=== PATIENT | female | born 1965 | race Caucasian/White ===

== ENCOUNTER 2016-12-13 07:17 | Emergency (ER) | payer MEDICAID, OTHER ==
[~2016-12-13] VITALS: Ht 162.6 cm; Wt 137.0 kg
[~2016-12-13 07:17] MED LIST: AMLO-147 PO; APIX5TAB PO; ASPI-664 PO; CHOL100062 PO; CIPR500T4 PO; CLIN-73 PO; DOCU-144 PO; FER325 PO; HYDR-3498 PO; HYDR25TA6 PO; LOSA50TA2 PO; MUPI22OI2 TOP; NYST15PO4 TOP; OMEP20CA9 PO; RANI150T9 PO; SACC250C PO; TRAM50TA2 PO
[2016-12-13 07:19] VITALS: Ht 162.6 cm; Wt 137.0 kg
[2016-12-13] MEDS ORDERED: IBUPROFEN 600 MG TAB PO ONE (08:00)
[2016-12-13] MEDS ORDERED: SOD CHLORIDE 0.9% IV ONE (08:00)
[2016-12-13] MEDS ORDERED: ACETAMINOPHEN 325 MG TAB PO ONE (08:00)
[2016-12-13 08:48] LABS: BASOPHIL # 0.1 10^3/ul (0.0-0.1); BASOPHILS % 0.5 % (0.0-2.0); HEMATOCRIT 35.2 % (37.0-47.0); HEMOGLOBIN 11.6 g/dl (12.0-16.0); LYMPHOCYTES # 1.1 10^3/ul (0.8-2.9); LYMPHOCYTES % 9.7 % (15.0-51.0); MEAN CORPUSCULAR HEMOGLOBIN 25.7 pg (29.0-33.0); MEAN CORPUSCULAR VOLUME 77.9 fl (82.0-101.0); MEAN PLATELET VOLUME 10.7 fl (7.4-10.4); MONOCYTE # 0.7 10^3/ul (0.3-0.9); MONOCYTES % 6.1 % (0.0-11.0); NEUTROPHIL # 9.6 10^3/ul (1.6-7.5); NEUTROPHILS % 83.3 % (39.0-77.0); PLATELET COUNT 245 10^3/UL (140-415); RED BLOOD COUNT 4.52 10^6/ul (4.20-5.40); RED CELL DISTRIBUTION WIDTH 14.6 % (11.5-14.5); WHITE BLOOD COUNT 11.6 10^3/ul (4.8-10.8)
[2016-12-13 08:59] LABS: ADD UMIC YES; UR ASCORBIC ACID NEGATIVE (NEGATIVE); UR BACTERIA FEW /HPF (NONE SEEN); UR BILIRUBIN (Dip) NEGATIVE (NEGATIVE); UR BLOOD (Dip) 2+ mg/dL (NEGATIVE); UR CLARITY CLOUDY (CLEAR); UR COLOR YELLOW (YELLOW); UR GLUCOSE (Dip) NEGATIVE (NEGATIVE); UR KETONES (Dip) 1+ mg/dL (NEGATIVE); UR LEUKOCYTE ESTERASE (Dip) 3+ Leu/ul (NEGATIVE); UR NITRITE (Dip) POSITIVE (NEGATIVE); UR RBC 14 /HPF (0-5); UR SPECIFIC GRAVITY (Dip) 1.012 (1.003-1.030); UR SQUAMOUS EPITHELIAL CELL FEW /HPF (FEW); UR TOTAL PROTEIN (Dip) 2+ mg/dl (NEGATIVE); UR UROBILINOGEN (Dip) 2+ mg/dL (NEGATIVE)
--- NOTE | 2016-12-13 09:05 | RADRPT ---
PROCEDURE: CHEST RADIOGRAPH CLINICAL INDICATION: Fever. TECHNIQUE: Single frontal view of the chest were obtained. COMPARISON: 11/22/2015. FINDINGS: There is no consolidation or pleural effusion. There is no pneumothorax. The cardiomediastinal stru ctures unremarkable. The visualized bony structures are unremarkable. IMPRESSION: Unremarkable single-view chest radiograph. RPTAT: HMZ .Salas Cueto MD, Date Time Electronically viewed and signed by .Salas Cueto MD, on 12/13/2016 09:05 .Z/
[2016-12-13 09:08] LABS: ALBUMIN 4.1 g/dl (3.3-4.9); ALBUMIN/GLOBULIN RATIO 1.1; BILIRUBIN,INDIRECT 0.7 mg/dl (0-1.1); BILIRUBIN,TOTAL 0.7 mg/dl (0.2-1.3); CREATININE 0.63 mg/dl (0.44-1.00); TOTAL PROTEIN 7.8 g/dl (6.1-8.1)
[2016-12-13] MEDS ORDERED: CEFTRIAXONE 1 GM/50 ML (PMX) 50 ML IVPB ONE (10:00)
[2016-12-13] MEDS ORDERED: POTASSIUM CHLORIDE (SR) 20 MEQ TAB PO STA (10:54)
[2016-12-13] MEDS ORDERED: IBUP400T22 PO (11:01)
[2016-12-13] MEDS ORDERED: CEPH-443 PO (11:01)
[2016-12-13] MEDS ORDERED: ACET500C5 PO (11:01)
[2016-12-13 11:13] VITALS: BP 113/61; PULSE 99; RESP 24; TEMP 100.9
--- NOTE | 2016-12-13 14:24 | ERD ---
ER Documentation Chief Complaint Date/Time DATE: 12/13/16 TIME: 14:18 Chief Complaint Complains of fever since yesterday HPI 50-year-old female patient with a past medical history of hypertension presents to the ED complaining of fever, chills, bilateral flank pain that started yesterday. Patient rates her pain a 5 out of 10. Denies any sick contacts. Denies any cough, rhinorrhea, chest pain, shortness of breath, wheezing, abdominal pain, nausea, vomiting, diarrhea, melena, bloody stools, dysuria, urgency, frequency, hematuria. ROS All systems reviewed and are negative except as per history of present illness. Medications Home Meds Active Scripts Ibuprofen* (Motrin*) 400 Mg Tab, 400 MG PO Q6, #30 TAB take with food Prov:MARSHALL TIMMONS PA-C 12/13/16 Acetaminophen* (Tylophen*) 500 Mg Capsule, 1 CAP PO Q6H Y for PAIN AND OR ELEVATED TEMP, #20 CAP Prov:MARSHALL TIMMONS PA-C 12/13/16 Cephalexin* (Keflex*) 500 Mg Capsule, 500 MG PO QID for 10 Days, CAP Prov:MARSHALL TIMMONS PA-C 12/13/16 Clindamycin Hcl* (Clindamycin Hcl*) 300 Mg Capsule, 300 MG PO Q8, #24 CAP Prov:LUNA LOZANO MD 12/11/15 Ciprofloxacin Hcl* (Ciprofloxacin Hcl*) 500 Mg Tablet, 500 MG PO BID for 10 Days , #16 TAB Prov:LUNA LOZANO MD 12/11/15 Nystatin* (Nystop*) 15 Gm Powder, 1 APPLIC TOP BID for 7 Days, BOT Prov:ASHLEIGH COOK MD 11/28/15 Mupirocin* (Bactroban*) 2% -22 Gram Oint...g., 1 APPLIC TOP BID for 4 Days, TUB Prov:ASHLEIGH COOK MD 11/28/15 Ferrous Sulfate* (Ferrous Sulfate*) 325 Mg Tabec, 325 MG PO DAILY for 30 Days, # 30 TAB Prov:ASHLEIGH COOK MD 11/28/15 Docusate Sodium* (Colace*) 100 Mg Capsule, 100 MG PO Q12H Y for CONSTIPATION for 30 Days, #60 CAP Prov:ASHLEIGH COOK MD 11/28/15 Apixaban* (Eliquis*) 5 Mg Tablet, 5 MG PO BID for 30 Days, #60 TAB Prov:ASHLEIGH COOK MD 11/28/15 Saccharomyces Boulardii* (Florastor*) 250 Mg Cap, 500 MG PO BID for 30 Days, CAP Prov:MICHAEL CAPUTO 11/18/15 Losartan Potassium* (Cozaar*) 50 Mg Tablet, 100 MG PO DAILY for 30 Days, TAB Prov:MICHAEL CAPUTO 11/18/15 Hydrocodone Bit-Acetaminophen (Hydrocodone Bit-APAP) 5-325MG Tablet, 2 TAB PO Q4H Y for MODERATE PAIN LEVEL 4-6, #30 TAB Prov:MICHAEL CAPUTO 11/18/15 Hydrochlorothiazide* (Hydrochlorothiazide*) 25 Mg Tab, 25 MG PO DAILY@06 for 30 Days, TAB Prov:MICHAEL CAPUTO 11/18/15 Docusate Sodium* (Colace*) 100 Mg Capsule, 100 MG PO TID for 30 Days, CAP Prov:MICHAEL CAPUTO 11/18/15 Cholecalciferol* (Vitamin D3*) 1,000 Unit Tablet, 5000 UNIT PO DAILY for 20 Days , TAB Prov:MICHAEL CAPUTO 11/18/15 Amlodipine Besylate* (Amlodipine Besylate*) 10 Mg Tablet, 10 MG PO DAILY for 30 Days, #30 TAB Prov:MICHAEL CAPUTO 11/18/15 Tramadol HCl (Tramadol HCl) 50 Mg Tablet, 50 MG PO Q6, #20 TAB Prov:SHAHNAZ BOND DO 11/09/15 Ranitidine Hcl* (Zantac*) 150 Mg Tablet, 150 MG PO BID Y for EPIGASTRIC PAIN, # 30 TAB Prov:CARMENCITA SIU 07/31/15 Reported Medications Amlodipine Besylate* (Amlodipine Besylate*) 10 Mg Tablet, 10 MG PO DAILY, #30 TAB 11/22/15 Aspirin* (Aspirin* EC) 81 Mg Tablet.dr, 81 MG PO DAILY, TAB 11/08/15 Omeprazole* (Prilosec*) 20 Mg Capsule.dr, 20 MG PO DAILY, CAP 01/19/14 Allergies Allergies: Coded Allergies: No Known Allergy (Unverified , 11/12/15) PMhx/Soc History of Surgery: Yes (, S/P HERNIA REPAIR AND BOWEL RESECTION) Anesthesia Reaction: No Hx Neurological Disorder: No Hx Respiratory Disorders: No Hx Psychiatric Problems: No Hx Miscellaneous Medical Probl: Yes (MORBID OBESITY; gastritis) Hx Alcohol Use: No Hx Substance Use: No Hx Tobacco Use: No Smoking Status: Never smoker Physical Exam Vitals Vital Signs Date Time Temp Pulse Resp B/P Pulse Ox O2 Delivery O2 Flow Rate FiO2 12/13/16 11:13 100.9 99 24 113/61 99 Room Air 12/13/16 09:50 99.6 99 16 134/70 96 Room Air 12/13/16 07:19 102.6 124 20 167/79 98 Physical Exam Const: [id number], well-nourished. In no acute distress. Head: Atraumatic, normocephalic Eyes: Normal Conjunctiva without injection. No purulent discharge. ENT: Normal external ear, nose. Moist oropharynx without tonsillar exudates. Non -erythematous pharynx. Uvula midline. No drooling. No trismus. Neck: No cervical midline tenderness. Full range of motion. No meningismus. No cervical lymphadenopathy. No JVD. Resp: Clear to auscultation bilaterally. No wheezing, rhonchi, rales, or crackles. No accessory muscle use. No retractions. Cardio: Regular rate and rhythm. No murmurs, rubs or gallops. Abd: Soft, nontender, non distended. Normal bowel sounds. No palpable masses. No rebound tenderness. No guarding. Negative McBurney's point. Negative psoas sign. Negative obturator sign. Skin: No petechiae or rashes Back: No midline tenderness. Bilateral CVA tenderness. Ext: No cyanosis, or edema. Neur: Awake and alert. Normal gait. Normal coordination. Psych: Normal Mood and Affect Result Diagram: 12/13/16 0831 12/13/1631 Results 24 hrs Laboratory Tests Test 12/13/16 08:31 White Blood Count 11.610^3/ul Red Blood Count 4.5210^6/ul Hemoglobin 11.6g/dl Hematocrit 35.2% Mean Corpuscular Volume 77.9fl Mean Corpuscular Hemoglobin 25.7pg Mean Corpuscular Hemoglobin Concent 33.0g/dl Red Cell Distribution Width 14.6% Platelet Count 02706^3/UL Mean Platelet Volume 10.7fl Neutrophils % 83.3% Lymphocytes % 9.7% Monocytes % 6.1% Eosinophils % 0.0% Basophils % 0.5% Nucleated Red Blood Cells % 0.0/100WBC Neutrophils # 9.610^3/ul Lymphocytes # 1.110^3/ul Monocytes # 0.710^3/ul Eosinophils # 0.010^3/ul Basophils # 0.110^3/ul Nucleated Red Blood Cells # 0.010^3/ul Urine Color YELLOW Urine Clarity CLOUDY Urine pH 6.0 Urine Specific Col[place]idge 1.012 Urine Ketones 1+mg/dL Urine Nitrite POSITIVEmg/dL Urine Bilirubin NEGATIVEmg/dL Urine Urobilinogen 2+mg/dL Urine Leukocyte Esterase 3+Clau/ul Urine Microscopic RBC 14/HPF Urine Microscopic WBC > 182/HPF Urine Squamous Epithelial Cells FEW/HPF Urine Bacteria FEW/HPF Urine Hemoglobin 2+mg/dL Urine Glucose NEGATIVEmg/dL Urine Total Protein 2+mg/dl Sodium Level 138mmol/L Potassium Level 3.0mmol/L Chloride Level 100mmol/L Carbon Dioxide Level 25mmol/L Anion Gap 16 Blood Urea Nitrogen 8mg/dl Creatinine 0.63mg/dl Glucose Level 150mg/dl Lactic Acid Level 1.3mmol/L Calcium Level 8.0mg/dl Total Bilirubin 0.7mg/dl Direct Bilirubin 0.00mg/dl Indirect Bilirubin 0.7mg/dl Aspartate Amino Transf (AST/SGOT) 22IU/L Alanine Aminotransferase (ALT/SGPT) 38IU/L Alkaline Phosphatase 125IU/L Total Protein 7.8g/dl Albumin 4.1g/dl Globulin 3.70g/dl Albumin/Globulin Ratio 1.10 Lipase 26U/L Current Medications Medications (Trade) Dose Ordered Sig/Estefani Route PRN Reason Start Time Stop Time Status Last Admin Dose Admin Sodium Chloride (NS) 4,250 ml @ 4,250 mls/hr BOLUS X1 ONCE IV 12/13/16 08:00 12/13/16 08:59 DC 12/13/16 08:44 Acetaminophen (Tylenol Tab) 650 mg ONCE ONCE PO 12/13/16 08:00 12/13/16 08:01 DC 12/13/16 08:45 Ibuprofen 600 mg 600 mg ONCE ONCE PO 12/13/16 08:00 12/13/16 08:01 DC 12/13/16 08:45 Ceftriaxone Sodium (Rocephin) 50 ml @ 100 mls/hr ONCE ONCE IVPB 12/13/16 10:00 12/13/16 10:29 DC 12/13/16 09:53 Potassium Chloride (Klor-Con 20) 40 meq ONCE STAT PO 12/13/16 10:54 12/13/16 10:56 DC 12/13/16 11:10 Procedures/MDM 50-year-old female patient with a past medical history of hypertension presents to the ED complaining of fever, chills, bilateral pain. Patient is febrile at 102.6. Patient is tachycardic at 124. A CBC, CMP, PT, PTT, lactic acid, blood culture, UA, urine culture, chest x-ray, influenza swab was ordered to further evaluate patient. Patient treated with 30 ml/kg NS bolus, Tylenol, Ibuprofen with downtrend of fever and improvement of pain. PROCEDURE: CHEST RADIOGRAPH CLINICAL INDICATION: Fever. TECHNIQUE: Single frontal view of the chest were obtained. COMPARISON: 11/22/2015. FINDINGS: There is no consolidation or pleural effusion. There is no pneumothorax. The cardiomediastinal structures unremarkable. The visualized bony structures are unremarkable. IMPRESSION: Unremarkable single-view chest radiograph. CBC: Leukocytosis of 11.3. Hgb 11.6 Hcg 35.2 CMP: No e/o severe acidosis, alkalosis, renal failure, diabetic ketoacidosis, liver disease. Potassium 3.0 - patient given 40 meq of potassium chloride. Lipase within normal limits. Urine: Positive nitrite, 3+ leukocyte esterase, 2+ hematuria. Pending urine culture Negative Influenza swab Lactic acid 1.3 Patient's infectious source is likely from pyelonephritis based on her fever, right sided CVA tenderness, positive nitrite, 3+ leukocyte esterase with > 182 WBC. Patient given 1 g ceftriaxone here in the ED. Low suspicion for septic renal stone ectopic , ovarian torsion, gastritis, GERD, peptic ulcer disease, cholecystitis, choledocholithiasis, cholangitis, pancreatitis, appendicitis, bowel obstruction, ileus, volvulus, nephrolithiasis, pyelonephritis, hepatitis, perforated viscus, diverticulitis, strangulated/ incarcerated hernia, DKA, acute abdomen, mesenteric ischemia or other emergent conditions. Low suspicion for acute myocardial infarction, pneumothorax, pneumonia, cardiac tamponade, pulmonary embolism, pleural effusion, pericarditis, myocarditis, AAA, aortic dissection, Boerhaave's syndrome, cardiac dysrhythmias,meningitis, intracranial bleed, seizure, stroke, TIA, severe sepsis or other emergent conditions. She is appropriate for outpatient management. Low suspicion for end organ damage. Patient is not hypotensive. Patient has an oxygen saturation of 98%. Patient is hemodynamically stable. Patient verbalized that she feels better. Discharge medications: Keflex, Ibuprofen, Tylenol Follow up with primary care physician in 1-2 days for close follow up care recommended. Instructed patient to return to the ED sooner for any worsening symptoms. Patient's questions were answered. Patient understood and agreed with discharge plan. Patient discharged stable. Departure Diagnosis: Primary Impression: Fever Fever type: unspecified Qualified Code: R50.9 - Fever, unspecified fever cause Additional Impression: Flank pain Condition: Stable Patient Instructions: Pyelonephritis, Female (Adult) Referrals: [facility] YOU HAVE RECEIVED A MEDICAL SCREENING EXAM AND THE RESULTS INDICATE THAT YOU DO NOT HAVE A CONDITION THAT REQUIRES URGENT TREATMENT IN THE EMERGENCY DEPARTMENT. FURTHER EVALUATION AND TREATMENT OF YOUR CONDITION CAN WAIT UNTIL YOU ARE SEEN IN YOUR DOCTORS OFFICE WITHIN THE NEXT 1-2 DAYS. IT IS YOUR RESPONSIBILITY TO MAKE AN APPOINTMENT FOR FOLOW-UP CARE. IF YOU HAVE A PRIMARY DOCTOR --you should call your primary doctor and schedule an appointment IF YOU DO NOT HAVE A PRIMARY DOCTOR YOU CAN CALL OUR PHYSICIAN REFERRAL HOTLINE AT IF YOU CAN NOT AFFORD TO SEE A PHYSICIAN YOU CAN CHOSE FROM THE FOLLOWING [facility] [address] [facility] [address] [facility] [address] [facility] [address] [facility] [address] [facility]. [facility]. [address] [facility]. [facility] YOU HAVE RECEIVED A MEDICAL SCREENING EXAM AND THE RESULTS INDICATE THAT YOU DO NOT HAVE A CONDITION THAT REQUIRES URGENT TREATMENT IN THE EMERGENCY DEPARTMENT. FURTHER EVALUATION AND TREATMENT OF YOUR CONDITION CAN WAIT UNTIL YOU ARE SEEN IN YOUR DOCTORS OFFICE WITHIN THE NEXT 1-2 DAYS. IT IS YOUR RESPONSIBILITY TO MAKE AN APPOINTMENT FOR FOLOW-UP CARE. IF YOU HAVE A PRIMARY DOCTOR --you should call your primary doctor and schedule and appointment IF YOU DO NOT HAVE A PRIMARY DOCTOR YOU CAN CALL OUR PHYSICIAN REFERRAL HOTLINE AT . IF YOU CAN NOT AFFORD TO SEE A PHYSICIAN YOU CAN CHOSE FROM THE FOLLOWING [facility] INSTITUTIONS: [facility] [address] [place] [address] [facility] [address] [place] [address] [facility] [address] [place] [address] [facility] URGENT CARE/SPECIALTIES Additional Instructions: Call your primary care doctor TOMORROW for an appointment during the next 2-3 days.See the doctor sooner or return here if your condition worsens before your appointment time. MARSHALL TIMMONS PA-C Dec 13, 2016 14:24
== END 2016-12-13 11:18 | disposition home or self-care (01) ==
LOC: MERGE 07:17 → FTE 07:17
DX: R50.9 Fever, unspecified (principal); R10.9 Unspecified abdominal pain; E66.01 Morbid (severe) obesity due to excess calories; I10 Essential (primary) hypertension; Z68.43 Body mass index [BMI] 50.0-59.9, adult; Z79.82 Long term (current) use of aspirin
CPT/HCPCS: 36415; 71010; 80053; 81001; 83605; 83690; 85025; 87040; 87086; 87400; 96361; 96374; J0696; J7030; Z7502; Z7610

== ENCOUNTER 2017-08-07 11:15 | Emergency (ER) | END 2017-08-07 16:45 | disposition home or self-care (01) ==

== ENCOUNTER 2017-09-03 20:52 | Inpatient (IN) | END 2017-09-06 14:20 | disposition home or self-care (01) | DRG 394 ==

== ENCOUNTER 2017-12-02 19:52 | Emergency (ER) | END 2017-12-03 01:16 | disposition home or self-care (01) ==